=== PATIENT | male | born 1995 | race Asian ===

== ENCOUNTER 2020-03-21 13:58 | Emergency (ER) | payer MEDICAID, OTHER ==
[~2020-03-21] VITALS: Ht 172.7 cm; Wt 65.0 kg
[2020-03-21 14:01] VITALS: BP 135/81
[2020-03-21] MEDS ORDERED: NEO/POLY/HC EAR SUSP 10ML LEFT EAR SCH (16:00)
== END 2020-03-21 15:02 | disposition home or self-care (01) ==
LOC: ED 14:14
DX: H60.592 Other noninfective acute otitis externa, left ear (principal); H60.12 Cellulitis of left external ear
CPT/HCPCS: 99283